=== PATIENT | female | born 1960 | race Caucasian/White ===

== ENCOUNTER 2017-07-04 10:12 | Day surgery (SDC) | payer OTHER ==
[2017-07-04] MEDS ORDERED: LR 1,000 ML IV ONE (10:27)
[2017-07-04 11:03] VITALS: PULSE 78
[2017-07-04] MEDS ORDERED: PROPOFOL/EMULSION 500 MG/50 ML BOTTLE IV ONE ×2 (11:50→12:04)
[2017-07-04] MEDS ORDERED: INDOMETHACIN 50 MG SUPP PR PRN (11:52)
--- NOTE | 2017-07-04 11:52 | PDGENHP ---
History & Physical Chief Complaint: iron def anemia History of Present Illness: 57 year old female with history of breast cancer presents for evaluation of iron def anemia. Had colonoscopy 3 years ago. No change in bowel habits, nausea, vomiting, etc. Pertinent Past, Social, Family History: PMHx: Breast cancer. All: PCN, corrina Relevant Physical Exam: HEENT: anicteric sclera. CV: RRR +s1s2. Lungs: CTAB. Abd: soft, nt, + bs Cardiorespiratory Assessment: ASA 2
[2017-07-04] MEDS ORDERED: PROPOFOL 200 MG/20 ML VIAL ONE (11:59)
[2017-07-04] MEDS ORDERED: NS 500 ML IV SCH (12:00)
--- NOTE | 2017-07-04 12:13 | PDANEPAE ---
ANE History of Present Illness here for egd/c-scope ANE Past Medical History - Cardiovascular History Hx Hypertension: No Hx Arrhythmias: No Hx Chest Pain: No Hx Coronary Artery / Peripheral Vascular Disease: No Hx CHF / Valvular Disease: No Hx Palpitations: No - Pulmonary History Hx COPD: No Hx Asthma/Reactive Airway Disease: No Hx Recent Upper Respiratory Infection: No Hx Oxygen in Use at Home: No Hx Sleep Apnea: No Sleep Apnea Screening Result - Last Documented: Negative - Neurologic History Hx Cerebrovascular Accident: No Hx Seizures: No Hx Dementia: No - Endocrine History Hx Diabetes: No - Renal History Hx Renal Disorders: No - Liver History Hx Hepatic Disorders: No - Neurological & Psychiatric Hx Hx Neurological and Psychiatric Disorders: No - Cancer History Hx Cancer: Yes Cancer History Comment: breast cancer - Congenital Disorder History Hx Congenital Disorders: No - GI History Hx Gastrointestinal Disorders: No - Other Health History Other Health History: rash,anulera granuloma - Chronic Pain History Chronic Pain: Yes (lower back) - Surgical History Prior Surgeries: hysterectomy 2008. colonoscopy 2013 ANE Review of Systems Review of systems is: negative Review of Systems: - Exercise capacity Exercise capacity: <4 METS METS (RN): 4 METS ANE Patient History - Allergies Allergies/Adverse Reactions: cephalexin [From Keflex] Allergy (Verified 06/15/17 14:47) Gadolinium-Containing Contrast Medi Allergy (Verified 06/15/17 14:47) Penicillins Allergy (Verified 06/15/17 14:47) - Home Medications Home medications: home medication list seen and reviewed Home Medications: Letrozole 06/15/17 [Last Taken 07/03/17] Levothyroxine Sodium 06/15/17 [Last Taken 07/03/17] Multi-Vitamin Daily 07/04/17 [Last Taken 07/03/17] - NPO status NPO Status: no food or drink >8 hours NPO Since - Liquids (Date): 07/04/17 NPO Since - Liquids (Time): 01:00 NPO Since - Solids (Date): 07/03/17 NPO Since - Solids (Time): 09:00 - Anes Hx Anes Hx: no prior problems - Smoking Hx Smoking Status: Never smoked - Family Anes Hx Family Hx Anesthesia Complications: none ANE Labs/Vital Signs - Vital Signs Vital Signs: reviewed preoperatively; see RN documention for details Blood Pressure: 125/82 Heart Rate: 78 Respiratory Rate: 14 O2 Sat (%): 98 Height: 160.02 cm Weight: 72.575 kg ANE Physical Exam - Airway Neck exam: FROM Mallampati Score: Class 1 - Pulmonary Pulmonary: no respiratory distress, clear to auscultation - Cardiovascular Cardiovascular: regular rate and rhythym - ASA Status ASA Status: II ANE Anesthesia Plan Anesthesia Plan: GA with mask
--- NOTE | 2017-07-04 12:40 | GIREPORT ---
[facility] Surgical Services - Endoscopy Department Patient Name: Nila Garcia Procedure Date: 07/04/2017 8:38 AM Patient Type: Outpatient Attending MD/ ER Physician: Evaristo Reynoso MD Procedure: Upper GI endoscopy Indications: Iron deficiency anemia Patient Profile: 57 year old female presents for evaluation of iron deficiency anemia. Providers: Evaristo Reynoso MD Medicines: Monitored Anesthesia Care Complications: No immediate complications. Estimated blood loss: Minimal. Description of Procedure: After obtaining informed consent, the endoscope was passed under direct vision. Throughout the procedure, the patient's blood pressure, pulse, and oxygen saturations were monitored continuously. The Endoscope was intro duced through the mouth, and advanced to the second part of duodenum. The [facility] er GI endoscopy was accomplished without difficulty. The patient tolerated th e procedure well. Findings: The examined esophagus was normal. A small hiatal hernia was present. Patchy mildly erythematous mucosa was found in the gastric body and in the gastric antrum. Biopsies were taken with a cold forceps for histology. A single 15 mm papule (nodule) was found in the gastric antrum. Polyp v erus other? Biopsies were taken with a cold forceps for histology. The examined duodenum was normal. Biopsies for histology were taken wit h a cold forceps for evaluation of celiac disease. Estimated Blood Loss: Estimated blood loss was minimal. Post Op Diagnosis: - Normal esophagus. - Small hiatal hernia. - Erythematous mucosa in the gastric body and antrum. Biopsied. - A single papule (nodule) found in the stomach. Biopsied. - Normal examined duodenum. Biopsied. - Etiology? No obvious cause of iron deficiency Recommendation: - Discharge patient to home (with escort). - Resume previous diet. - Continue present medications. - Await pathology results. - If nodule is adenomatous, will need repeat EGD for removal. - Perform a colonoscopy today. - Thank you for allowing me to particpate in the care of your patient. Attending Participation: I personally performed the entire procedure. Evaristo Reynoso MD Evaristo Reynoso MD 07/04/2017 12:39:39 PM This report has been signed electronicallyEvaristo Reynoso MD Number of Addenda: 0 Note Initiated On: 07/04/2017 8:38 AM [email or web address]}
--- NOTE | 2017-07-04 12:44 | GIREPORT ---
[facility] Surgical Services - Endoscopy Department Patient Name: Nila Garcia Procedure Date: 07/04/2017 12:05 PM Patient Type: Outpatient Attending MD/ ER Physician: Evaristo Reynoso MD Procedure: Colonoscopy Indications: Iron deficiency anemia Patient Profile: 57 year old female with a history of polyps presents for evaluation of iron deficiency anemia. Providers: Evaristo Reynoso MD Medicines: Monitored Anesthesia Care Complications: No immediate complications. Estimated blood loss: None. Description of Procedure: After obtaining informed consent, the scope was passed under direct vis ion. Throughout the procedure, the patient's blood pressure, pulse, and oxyg en saturations were monitored continuously. The Colonoscope with irrigatio n channel was introduced through the anus and advanced to the terminal il eum. The colonoscopy was performed without difficulty. The patient tolerated the procedure well. The quality of the bowel preparation was good. The ileo cecal valve, appendiceal orifice, and rectum were photographed. Findings: The perianal and digital rectal examinations were normal. Pertinent negatives include no palpable rectal lesions. The terminal ileum appeared normal. The entire examined colon appeared normal. Estimated Blood Loss: Estimated blood loss: none. Post Op Diagnosis: - The examined portion of the ileum was normal. - The entire examined colon is normal. - No specimens collected. Recommendation: - Discharge patient to home (with escort). - Resume previous diet. - Continue present medications. - Repeat colonoscopy in 5 years for surveillance. - To visualize the small bowel, perform video capsule endoscopy. - Thank you for alowing me to participate in the care of your patient. Attending Participation: I personally performed the entire procedure. Evaristo Reynoso MD Evaristo Reynoso MD 07/04/2017 12:44:21 PM This report has been signed electronicallyEvaristo Reynoso MD Number of Addenda: 0 Note Initiated On: 07/04/2017 12:05 PM Total Procedure Duration Time 0 hours 22 minutes 51 seconds [email or web address]}
--- NOTE | 2017-07-04 12:56 | POSTANESTH ---
Post Anesthetic Evaluation Cardiovascular Status: Normal, Stable Respiratory Status: Normal, Stable Level of Consciousness/Mental Status: Can Participate in Eval Pain Control: Adequate, Prn Tx Ordered Nausea/Vomiting Control: Adequate, Prn Tx Ordered Complications Possibly Related to Anesthesia: None Noted
[2017-07-04 13:03] VITALS: TEMP 98.2
[2017-07-04 13:14] VITALS: BP 108/79; RESP 17; O2SAT 97
== END 2017-07-04 13:20 | disposition home or self-care (01) ==
LOC: FSGY 10:12
PROVIDERS: ATTEND Internal Medicine Gastroenterology
PROC: 0DB58ZX Excision of Esophagus, Via Natural or Artificial Opening Endoscopic, Diagnostic (ICD-10-PCS; principal; 2017-07-04 11:45)
PROC: 0DJ08ZZ Inspection of Upper Intestinal Tract, Via Natural or Artificial Opening Endoscopic (ICD-10-PCS; principal; 2017-07-04 11:45)
PROC: 0DB98ZX Excision of Duodenum, Via Natural or Artificial Opening Endoscopic, Diagnostic (ICD-10-PCS; principal; 2017-07-04 11:45)
PROC: 0DJD8ZZ Inspection of Lower Intestinal Tract, Via Natural or Artificial Opening Endoscopic (ICD-10-PCS; principal; 2017-07-04 11:45)
DX: D50.9 Iron deficiency anemia, unspecified (principal); K29.60 Other gastritis without bleeding; K31.89 Other diseases of stomach and duodenum; Z85.3 Personal history of malignant neoplasm of breast; Z86.010 Personal history of colon polyps
CPT/HCPCS: J2704

== ENCOUNTER → 2017-08-12 | Outpatient (CLI) | payer OTHER | LOC: FIMAGING 12:00 | PROVIDERS: ATTEND Internal Medicine Hematology & Oncology | DX: Z12.31 Encounter for screening mammogram for malignant neoplasm of breast (principal); Z85.3 Personal history of malignant neoplasm of breast; Z90.11 Acquired absence of right breast and nipple ==

== ENCOUNTER 2017-08-29 13:22 | Day surgery (SDC) | payer OTHER ==
[2017-08-29] MEDS ORDERED: LR 1,000 ML IV ONE (13:44)
[2017-08-29] MEDS ORDERED: LIDOCAINE 1% 2 ML INJ ID PRN (13:44)
[2017-08-29] MEDS ORDERED: ONDANSETRON 4 MG/2 ML VIAL IVP PRN (14:17)
[2017-08-29] MEDS ORDERED: fentaNYL 100 MCG/2 ML INJ IVP PRN ×2 (14:17→14:46)
[2017-08-29] MEDS ORDERED: NALOXONE HCL 0.4 MG/ML INJ IVP PRN ×2 (14:17→14:46)
[2017-08-29] MEDS ORDERED: ALBUTEROL 3 ML DEYVIAL IH PRN (14:17)
--- NOTE | 2017-08-29 14:17 | PDANEPAE ---
ANE History of Present Illness here for egd ANE Past Medical History - Cardiovascular History Hx Hypertension: No Hx Arrhythmias: No Hx Chest Pain: No Hx Coronary Artery / Peripheral Vascular Disease: No Hx CHF / Valvular Disease: No Hx Palpitations: No - Pulmonary History Hx COPD: No Hx Asthma/Reactive Airway Disease: No Hx Recent Upper Respiratory Infection: No Hx Oxygen in Use at Home: No Hx Sleep Apnea: No Sleep Apnea Screening Result - Last Documented: Negative - Neurologic History Hx Cerebrovascular Accident: No Hx Seizures: No Hx Dementia: No - Endocrine History Hx Diabetes: No Endocrine History Comment: HYPOTHYROID - Renal History Hx Renal Disorders: No - Liver History Hx Hepatic Disorders: No - Neurological & Psychiatric Hx Hx Neurological and Psychiatric Disorders: No - Cancer History Hx Cancer: Yes Cancer History Comment: breast cancer - Congenital Disorder History Hx Congenital Disorders: No - GI History Hx Gastrointestinal Disorders: No - Other Health History Other Health History: rash,anulera granuloma - Chronic Pain History Chronic Pain: Yes (lower back) - Surgical History Prior Surgeries: hysterectomy 2008. colonoscopy 2013 ANE Review of Systems Review of systems is: negative Review of Systems: - Exercise capacity Exercise capacity: >=4 METS METS (RN): 4 METS ANE Patient History - Allergies Allergies/Adverse Reactions: cephalexin [From Keflex] Allergy (Verified 06/15/17 14:47) Gadolinium-Containing Contrast Medi Allergy (Verified 06/15/17 14:47) Penicillins Allergy (Verified 06/15/17 14:47) - Home Medications Home medications: home medication list seen and reviewed Home Medications: Letrozole DAILY 06/15/17 [Last Taken 08/26/17] Levothyroxine Sodium DAILY06 06/15/17 [Last Taken 08/29/17 06:30] Multi-Vitamin Daily DAILY 07/04/17 [Last Taken 08/28/17] - NPO status NPO Status: no food or drink >8 hours NPO Since - Liquids (Date): 08/28/17 NPO Since - Liquids (Time): 21:00 NPO Since - Solids (Date): 08/28/17 NPO Since - Solids (Time): 19:00 - Anes Hx Anes Hx: no prior problems - Smoking Hx Smoking Status: Never smoked - Family Anes Hx Family Hx Anesthesia Complications: none ANE Labs/Vital Signs - Vital Signs Vital Signs: reviewed preoperatively; see RN documention for details Blood Pressure: 127/76 Heart Rate: 74 Respiratory Rate: 16 O2 Sat (%): 97 Height: 161.29 cm Weight: 72.575 kg ANE Physical Exam - Airway Neck exam: FROM Mallampati Score: Class 1 - Pulmonary Pulmonary: no respiratory distress - Cardiovascular Cardiovascular: regular rate and rhythym - ASA Status ASA Status: II ANE Anesthesia Plan Anesthesia Plan: GA with mask
[2017-08-29] MEDS ORDERED: PROPOFOL/EMULSION 500 MG/50 ML BOTTLE IV ONE (14:52)
--- NOTE | 2017-08-29 14:54 | PDGENHP ---
History & Physical Chief Complaint: gastric polyp History of Present Illness: 57 year old female presents for resection of a gastric polyp Pertinent Past, Social, Family History: PMhx: hypothyroid, bc Relevant Physical Exam: HEENT: anicteric. CV; RRR +s1s2. lungs: CTAB. Abd: soft, nt, + bs Cardiorespiratory Assessment: ASA 2
[2017-08-29] MEDS ORDERED: INDOMETHACIN 50 MG SUPP PR PRN (14:56)
[2017-08-29] MEDS ORDERED: NS 500 ML IV SCH (15:00)
[2017-08-29] MEDS ORDERED: PROPOFOL 200 MG/20 ML VIAL ONE (15:05)
--- NOTE | 2017-08-29 15:18 | GIREPORT ---
[facility] Surgical Services - Endoscopy Department Patient Name: Nila Garcia Procedure Date: 08/29/2017 2:43 PM Patient Type: Outpatient Attending MD/ ER Physician: Evaristo Reynoso MD Procedure: Upper GI endoscopy Indications: For therapy of gastric polyps Patient Profile: 57 year old female presents for removal of a large gastric polyp. Providers: Evaristo Reynoso MD Medicines: Monitored Anesthesia Care Complications: No immediate complications. Estimated blood loss: Minimal. Description of Procedure: After obtaining informed consent, the endoscope was passed under direct vision. Throughout the procedure, the patient's blood pressure, pulse, and oxygen saturations were monitored continuously. The Endoscope was intro duced through the mouth, and advanced to the second part of duodenum. The [facility] er GI endoscopy was accomplished without difficulty. The patient tolerated th e procedure well. Findings: The examined esophagus was normal. A hiatal hernia was present. A single 15 mm sessile polyp was found in the gastric antrum. The polyp was removed with a hot snare. Resection and retrieval were complete. To osiel se a defect after polypectomy, two hemostatic clips were successfully placed . A single 2 mm sessile polyp was found in the gastric body. The polyp wa s removed with a cold biopsy forceps. Resection and retrieval were comple te. The examined duodenum was normal. Estimated Blood Loss: Estimated blood loss was minimal. Post Op Diagnosis: - Normal esophagus. - Hiatal hernia. - A single gastric polyp. Resected and retrieved. Clips were placed. - A single gastric polyp. Resected and retrieved. - Normal examined duodenum. Recommendation: - Discharge patient to home (with escort). - Resume previous diet. - Continue present medications. - Await pathology results. - Repeat upper endoscopy for surveillance based on pathology results. Attending Participation: I personally performed the entire procedure. Evaristo Reynoso MD Evaristo Reynoso MD 08/29/2017 3:18:20 PM This report has been signed electronicallyEvaristo Reynoso MD Number of Addenda: 0 Note Initiated On: 08/29/2017 2:43 PM Total Procedure Duration Time 0 hours 9 minutes 18 seconds [email or web address]}
[2017-08-29 16:14] VITALS: PULSE 66; RESP 16; TEMP 97.5
[2017-08-29 16:15] VITALS: BP 110/62; O2SAT 98
== END 2017-08-29 16:10 | disposition home or self-care (01) ==
LOC: FSGY 13:22
PROVIDERS: ATTEND Internal Medicine Gastroenterology
PROC: 0DB68ZZ Excision of Stomach, Via Natural or Artificial Opening Endoscopic (ICD-10-PCS; principal; 2017-08-29 15:00)
DX: K31.7 Polyp of stomach and duodenum (principal); E03.9 Hypothyroidism, unspecified
CPT/HCPCS: J2704

== ENCOUNTER → 2018-04-10 | Day surgery (SDC) | payer OTHER ==
[~2018-04-10] MED LIST: LIDOCAINE 1% 2 ML INJ ID PRN; LR 1,000 ML IV ONE; NALOXONE HCL 0.4 MG/ML INJ IVP PRN; PROPOFOL 200 MG/20 ML VIAL ONE
--- NOTE | 2018-04-10 12:48 | PDGENHP ---
History & Physical Chief Complaint: gastric polyp History of Present Illness: 58 year old female presents for surveillance of a large gastric polyp s/p resection in august 2017 Pertinent Past, Social, Family History: PMHx- Breast ca. SurgHx: mastectomy. SoHx: + alcohol Relevant Physical Exam: HEENT: anicteric. CV; RRR +s1s2. lungs: CTAB. Abd: soft, nt, + bs Cardiorespiratory Assessment: ASA 2
--- NOTE | 2018-04-10 12:49 | PDANEPAE ---
ANE History of Present Illness h/o polyps ANE Past Medical History - Cardiovascular History Hx Hypertension: No Hx Arrhythmias: No Hx Chest Pain: No Hx Coronary Artery / Peripheral Vascular Disease: No Hx CHF / Valvular Disease: No Hx Palpitations: No - Pulmonary History Hx COPD: No Hx Asthma/Reactive Airway Disease: No Hx Recent Upper Respiratory Infection: No Hx Oxygen in Use at Home: No Hx Sleep Apnea: No Sleep Apnea Screening Result - Last Documented: Negative - Neurologic History Hx Cerebrovascular Accident: No Hx Seizures: No Hx Dementia: No - Endocrine History Hx Diabetes: No Endocrine History Comment: HYPOTHYROID - Renal History Hx Renal Disorders: No - Liver History Hx Hepatic Disorders: No - Neurological & Psychiatric Hx Hx Neurological and Psychiatric Disorders: No - Cancer History Hx Cancer: Yes Cancer History Comment: breast cancer - Congenital Disorder History Hx Congenital Disorders: No - GI History Hx Gastrointestinal Disorders: No - Other Health History Other Health History: rash,anulera granuloma - Chronic Pain History Chronic Pain: Yes (lower back) - Surgical History Prior Surgeries: hysterectomy 2008. colonoscopy 2013 ANE Review of Systems Review of Systems: - Exercise capacity METS (RN): 4 METS ANE Patient History - Allergies Allergies/Adverse Reactions: cephalexin [From Keflex] Allergy (Verified 03/16/18 10:32) Itching Gadolinium-Containing Contrast Medi Allergy (Verified 03/16/18 10:32) CHEST TIGHTNESS, DIFFICULTY BREATHING Penicillins Allergy (Verified 03/16/18 10:32) Rash - Home Medications Home Medications: Levothyroxine Sodium DAILY06 06/15/17 [Last Taken 04/09/18 08:00] Multi-Vitamin Daily DAILY 07/04/17 [Last Taken 04/05/18] Cetirizine 03/16/18 [Last Taken Unknown] Herbals/Supplements -Info Only 03/16/18 [Last Taken Unknown] - NPO status NPO Since - Liquids (Date): 04/09/18 NPO Since - Liquids (Time): 21:00 NPO Since - Solids (Date): 04/09/18 NPO Since - Solids (Time): 19:00 - Smoking Hx Smoking Status: Never smoked - Family Anes Hx Family Hx Anesthesia Complications: none ANE Labs/Vital Signs - Vital Signs Blood Pressure: 116/74 Heart Rate: 75 Respiratory Rate: 21 O2 Sat (%): 98 Height: 160.02 cm Weight: 72.575 kg ANE Physical Exam - Airway Neck exam: FROM Mallampati Score: Class 1 - Pulmonary Pulmonary: no respiratory distress - Cardiovascular Cardiovascular: regular rate and rhythym - ASA Status ASA Status: I ANE Anesthesia Plan Total IV Anesthesia: Yes
[2018-04-10 14:30] VITALS: BP 98/55
--- NOTE | 2018-04-13 11:09 | GIREPORT ---
[facility] Surgical Services - Endoscopy Department Patient Name: Nila Garcia Procedure Date: 04/10/2018 12:44 PM Patient Type: Outpatient Attending MD/ ER Physician: Evaristo Reynoso MD Procedure: Upper GI endoscopy Indications: Follow-up of gastric polyps Patient Profile: 58 year old female presents for surveillance of a large gastric polyp. Providers: Evaristo Reynoso MD Medicines: Monitored Anesthesia Care Complications: No immediate complications. Estimated blood loss: Minimal. Description of Procedure: After obtaining informed consent, the endoscope was passed under direct vision. Throughout the procedure, the patient's blood pressure, pulse, and oxygen saturations were monitored continuously. The Endoscope was intro duced through the mouth, and advanced to the second part of duodenum. The [facility] er GI endoscopy was accomplished without difficulty. The patient tolerated th e procedure well. Findings: The examined esophagus was normal. A hiatal hernia was present. Patchy mildly erythematous mucosa was found in the gastric body and in the gastric antrum. Biopsies were taken with a cold forceps for histology. A few small sessile polyps were found on the greater curvature of the stomach. The polyp was removed with a cold biopsy forceps. Resection an d retrieval were complete. The examined duodenum was normal. Estimated Blood Loss: Estimated blood loss was minimal. Post Op Diagnosis: - Normal esophagus. - Hiatal hernia. - Erythematous mucosa in the gastric body and antrum. Biopsied. - A few gastric polyps. Resected and retrieved. - Normal examined duodenum. - No evidence of remnant polyp. Recommendation: - Discharge patient to home (with escort). - The signs and symptoms of potential delayed complications were discus sed with the patient. - Patient has a contact number available for emergencies. - Return to normal activities tomorrow. - Resume previous diet. - Continue present medications. - Repeat upper endoscopy in 2 years for surveillance based on pathology results. Attending Participation: I personally performed the entire procedure. Evaristo Reynoso MD Evaristo Reynoso MD 04/10/2018 1:30:15 PM This report has been signed electronicallyEvaristo Reynoso MD Number of Addenda: 0 Note Initiated On: 04/10/2018 12:44 PM [email or web address]
== END | disposition home or self-care (01) ==
LOC: FSGY 11:30
PROVIDERS: ATTEND Internal Medicine Gastroenterology
PROC: 0DJ08ZZ Inspection of Upper Intestinal Tract, Via Natural or Artificial Opening Endoscopic (ICD-10-PCS; principal; 2018-04-10 13:00)
PROC: 0DB68ZX Excision of Stomach, Via Natural or Artificial Opening Endoscopic, Diagnostic (ICD-10-PCS; principal; 2018-04-10 13:00)
DX: K31.7 Polyp of stomach and duodenum (principal); Z86.018 Personal history of other benign neoplasm; Z85.3 Personal history of malignant neoplasm of breast; Z90.10 Acquired absence of unspecified breast and nipple; E03.9 Hypothyroidism, unspecified
CPT/HCPCS: J2704